=== PATIENT | female | born 1975 | race Caucasian/White ===

== ENCOUNTER 2017-03-18 08:35 | Emergency (ER) | payer OTHER ==
[~2017-03-18] VITALS: Ht 162.6 cm; Wt 53.5 kg
[2017-03-18 08:42] VITALS: Ht 162.6 cm; Wt 53.5 kg
--- NOTE | 2017-03-18 10:43 | ERD ---
ER Documentation Chief Complaint Chief Complaint Pt presents with epigastric and vomiting X 4 days. 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 Patient states that she sees Dr. Liao at [facility] who is her GI doctor. She states that her main reason for coming in today is nausea vomiting. JAVIER report shows 25 emergency room visits across [facility] this year. She denies fevers, chills, chest pain, shortness breath. ROS All systems reviewed and are negative except as per history of present illness. Allergies Allergies: Coded Allergies: Penicillins (Verified Allergy, Unknown, 03/18/17) PMhx/Soc History of Surgery: Yes (Hysterectomy 2014, Colon sx, Appendectomy, [place]) Anesthesia Reaction: No Hx Miscellaneous Medical Probl: Yes (SMA syndrome) Hx Alcohol Use: No Hx Substance Use: No Hx Tobacco Use: No Smoking Status: Never smoker Physical Exam Vitals Vital Signs Date Time Temp Pulse Resp B/P Pulse Ox O2 Delivery O2 Flow Rate FiO2 03/18/17 08:42 98.3 107 18 112/72 97 Physical Exam General: Well-developed, well-nourished. The patient appears in no acute distress. HEENT: Head is normocephalic, atraumatic. No scleral icterus. Neck: Supple. Nontender. Lungs: Clear to auscultation. Normal air movement. Heart: Regular rate and rhythm. S1 and S2 are normal. No murmurs, gallops, or rubs. Abdomen: Soft, midline abdominal scar, questionable tenderness in epigastric and mid abdomen. Bowel sounds are normoactive. There are no masses, no guarding, no peritoneal signs. Extremities: No clubbing or cyanosis. Normal pulses. Moving extremities x 4. No weakness. Neurologic: Alert and oriented 3. No focal deficits. Skin: Normal turgor. No rash or lesions. Procedures/MDM 41-year-old female comes in with abdominal pain, the patient initially told me that her GI doctor is at [place], Dr. Burden but I does confirm that her GI doctor is actually a [place] Dr. Liao. Her history includes opiate use, chronic pain, panic disorder per the GI office, I spoke with the nurse. The patient at this time I discussed with her because she has chronic pain that she needs to see her primary care doctor or GI, or consider pain specialist. Her vitals were reviewed, and her physical examination is not consistent with an acute or surgical abdominal process. I believe that the patient is stable, and her multiple emergency room visits are concerning to me. I asked with the patient feels comfortable at this time seeing her doctor who is Dr. Liao at [place], and she states that she can follow-up with them. I do not see any signs of an emergent or surgical process, and patient is to follow-up with her doctor for reevaluation and continuing care. The case was reviewed and discussed with Dr. Severino who agrees with the plan of care including labs, treatment, and advanced imaging as appropriate. Departure Diagnosis: Primary Impression: Abdominal pain Condition: Good Patient Instructions: Abdominal Pain Additional Instructions: Call your primary care doctor TOMORROW for an appointment during the next 1-2 days.See the doctor sooner or return here if your condition worsens before your appointment time. VITA GARCIA PA-C Mar 18, 2017 10:43
== END 2017-03-18 09:45 | disposition home or self-care (01) ==
LOC: FTE 08:35
DX: R10.13 Epigastric pain (principal)
CPT/HCPCS: 99282